=== PATIENT | female | born 1985 ===

== ENCOUNTER 2022-07-19 06:56 | Day surgery (SDC) | payer OTHER ==
[~2022-07-19 06:56] MED LIST: UNISOM25 MG PO
[2022-07-19] MEDS ORDERED: TRAM1TAB98 PO (15:49)
[2022-07-19] MEDS ORDERED: KETO10TA2 PO (15:54)
== END 2022-07-19 17:45 | disposition home or self-care (01) ==
LOC: CIR.AMB 06:56
PROVIDERS: ATTEND Obstetrics & Gynecology
DX: N83.8 Other noninflammatory disorders of ovary, fallopian tube and broad ligament (principal); D25.9 Leiomyoma of uterus, unspecified; N80.319 Endometriosis of the anterior cul-de-sac, unspecified depth; Z30.02 Counseling and instruction in natural family planning to avoid pregnancy; N94.5 Secondary dysmenorrhea; N70.11 Chronic salpingitis; Z20.822 Contact with and (suspected) exposure to COVID-19